=== PATIENT | male | born 1950 | race Caucasian/White ===

== ENCOUNTER 2022-03-30 10:01 | Day surgery (SDC) | payer MEDICARE ==
[~2022-03-30] VITALS: Ht 185.4 cm; Wt 96.3 kg
[2022-03-30] VITALS (12 sets, daily range): BP systolic 104–157; BP diastolic 70–90
[2022-03-30] MEDS ORDERED: LOSA1TAB41 PO (10:24)
[2022-03-30] MEDS ORDERED: CARV3.1244 PO (10:24)
[2022-03-30] MEDS ORDERED: TAMSULOSIN PO (10:24)
[2022-03-30] MEDS ORDERED: diphenhydrAMINE 25mg capsule PO PRN ×2 (10:25→11:40)
[2022-03-30] MEDS ORDERED: ATOR10TA70 PO (10:25)
[2022-03-30] MEDS ORDERED: LORazepam 0.5 MG tablet PO PRN ×2 (10:25→11:40)
[2022-03-30] MEDS ORDERED: normal saline 1,000 ML IV SCH ×2 (10:25→11:40)
[2022-03-30 11:02] LABS: BASOPHILS % (AUTO) 0.4 % (0-1); EOSINOPHILS # (AUTO) 0.2 X10'3 (0-0.9); EOSINOPHILS % (AUTO) 2.7 % (0-6); HEMATOCRIT 41.7 % (42.0-52.0); HEMOGLOBIN 14.4 g/dl (14.0-17.9); LYMPHOCYTES # (AUTO) 2.6 X10'3 (1.1-4.8); LYMPHOCYTES % (AUTO) 30.7 % (21-51); MEAN CORPUSCULAR HGB CONC 34.7 g/dL (33.0-36.5); MEAN CORPUSCULAR VOLUME 86.5 FL (78-98); MEAN PLATELET VOLUME 8.5 FL (7.4-10.4); MONOCYTES # (AUTO) 0.7 X10'3 (0-0.9); MONOCYTES % (AUTO) 8.3 % (2-12); NEUTROPHILS # (AUTO) 4.8 X10'3 (1.8-7.7); NEUTROPHILS % (AUTO) 57.9 % (42-75); PLATELET COUNT 207 X10'3 (140-440); RED BLOOD COUNT 4.81 X10'6 (4.70-6.10); RED CELL DISTRIBUTION WIDTH 14.4 % (11.5-14.5); WHITE BLOOD COUNT 8.3 X10'3 (4.5-11.0)
[2022-03-30 11:06] LABS: ALBUMIN 3.6 G/DL (3.4-5.0); ANION GAP 8 (8-16); BLOOD UREA NITROGEN 22 MG/DL (7-18); BUN/CREATININE RATIO 12.8 (5.4-32.0); CALCIUM 8.4 MG/DL (8.5-10.1); CHLORIDE 107 MMOL/L (99-107); CREATININE 1.72 MG/DL (0.60-1.10); GLUCOSE 94 MG/DL (70-104); SODIUM 143 MMOL/L (135-145); TOTAL CARBON DIOXIDE 27.9 MMOL/L (24-32); eGFR 39 ML/MIN
[2022-03-30 11:09] LABS: APTT 26 SECONDS (22-32)
[2022-03-30] MEDS ORDERED: nitroGLYCERIN-Tridil 50MG/D5W 250 ML IV ONE (11:10)
[2022-03-30] MEDS ORDERED: fentaNYL/PF 50MCG/1 ML 2ML syringe ONE (11:11)
[2022-03-30] MEDS ORDERED: heparin 1,000unit/ml 10ml vial 10 ML ONE (11:11)
[2022-03-30] MEDS ORDERED: midazolam 1 mg/ML 2ml injection ONE (11:11)
[2022-03-30] MEDS ORDERED: LIDOcaine 1% (10mg/ml) 2ml vial ONE (11:11)
[2022-03-30] MEDS ORDERED: iohexol 350MG/ML 100ml bottle IV ONE (11:11)
[2022-03-30] MEDS ORDERED: verapamil 2.5 mg/ml inj IV ONE (11:11)
[2022-03-30] MEDS ORDERED: sodium bicarbonate (8.4%) inj. 150 ML in dextrose 5%-water 1,000 ML IV ONE ×2 (11:40→11:45)
[2022-03-30] MEDS ORDERED: normal saline 1000ml 1,000 ML IV SCH (13:20)
[2022-03-30] MEDS ORDERED: ACETYLCYSTEINE 200 MG/1 ML 4 ML ORAL SOLUTION PO SCH (13:56)
[2022-03-31 15:09] LABS: ISTAT HGB ART 12.6 g/dl (14.0-17.9); ISTAT Hct ART 37 %PCV (42-52); ISTAT O2 SATURATION ARTERIAL 96 % (95-98); ISTAT SOURCE ART
[2022-03-31 15:11] LABS: ISTAT Hct MIX 38 %PCV (42-52); ISTAT O2 SATURATION MIX VENOUS 60 % (60-80); ISTAT SOURCE VEN
== END 2022-03-30 16:55 | disposition home or self-care (01) ==
LOC: SSTAY O 10:01
PROVIDERS: ATTEND Internal Medicine Cardiovascular Disease
DX: I25.10 Atherosclerotic heart disease of native coronary artery without angina pectoris (principal); I10 Essential (primary) hypertension; E78.5 Hyperlipidemia, unspecified; Z87.442 Personal history of urinary calculi; Z98.890 Other specified postprocedural states; Z79.899 Other long term (current) drug therapy; Z79.01 Long term (current) use of anticoagulants; Z85.46 Personal history of malignant neoplasm of prostate
CPT/HCPCS: 36415; 76937; 80048; 82803; 85014; 85025; 85610; 85730; 93005; 93460; 99152; 99153; A6258; C1751; C1769; C1894; J1644; J2250; J3010; J3490; J7030; J7070; Q0163; Q9967; A4620; A5120; A6402